=== PATIENT | female | born 1950 | race Caucasian/White ===

== ENCOUNTER 2016-11-18 17:31 | Emergency (ER) | payer OTHER ==
[~2016-11-18] VITALS: Ht 167.6 cm; Wt 88.5 kg
[~2016-11-18 17:31] MED LIST: ALPRAZOLAM 0.50.5 M1 PO; CELEXA 20 MG TA20 M1 PO; CRESTOR20 MG; DICLOFENAC SODI75 M1 PO; DOXYCYCLINE 10100 MG PO; HTN MED PO; LISINOPRIL40 MG PO; MEDROLDOSEPACK PO; NORCO 5-325 TA1 EACH PO; TESSALON200 MG PO; ZPAK PO
[2016-11-18 18:30] VITALS: BP 150/84
== END 2016-11-18 19:20 | disposition home or self-care (01) ==
LOC: ER 17:31
DX: M25.561 Pain in right knee (principal); I10 Essential (primary) hypertension; F41.9 Anxiety disorder, unspecified; F32.9 Major depressive disorder, single episode, unspecified; E78.00 Pure hypercholesterolemia, unspecified